=== PATIENT | female | born 1990 | race Caucasian/White ===

== ENCOUNTER 2017-09-20 00:09 | Emergency (ER) | payer BC ==
[2017-09-20 01:05] LABS: #Lymphocytes 2.8 thou/uL (1.20-3.40); #Monocytes 0.5 thou/uL (0.11-0.59); #Neutrophils 5.6 thou/uL (1.40-6.50); %Basophils 0.5 % (0.0-1.0); %Eosinophils 0.1 % (0.0-10.0); %Lymphocytes 31.3 % (21.0-51.0); %Monocytes 5.3 % (0.0-10.0); %Neutrophils 62.9 % (42.0-75.0); Hemoglobin 13.5 g/dL (12.0-16.0); Mean Corpuscular HGB CONC 34.2 g/dL (32.0-36.0); Mean Corpuscular Hemoglobin 31.2 pg (27.0-31.0); Mean Corpuscular Volume 91.2 fl (81.0-99.0); Mean Platelet Volume 6.3 fL (7.4-10.4); Platelet Count 241 thou/uL (130-400); RBC Distribution Width 11.4 % (11.5-14.5); Red Blood Cell (RBC) Count 4.33 mill/uL (4.20-5.40); White Blood Cell (WBC) Count 8.9 thou/uL (4.8-10.8)
[2017-09-20] MEDS ORDERED: Benzonatate 100 MG CAP ONE (01:41)
--- NOTE | 2017-09-20 07:29 | RAD ---
TWO VIEWS OF THE CHEST: COMPARISON: None. HISTORY: Cough. FINDINGS: This exam is limited secondary to the patient's large body habitus. Two views of the chest show norm al sized cardiomediastinal silhouette. There is no evidence of consolidation, mass, or pleural effusi on. The bones are unremarkable. IMPRESSION: No evidence of acute cardiopulmonary disease. POS: [facility]
== END 2017-09-20 02:06 | disposition home or self-care (01) ==
LOC: MADERS 00:09
DX: J20.9 Acute bronchitis, unspecified (principal); F17.210 Nicotine dependence, cigarettes, uncomplicated; Z79.891 Long term (current) use of opiate analgesic; Z79.899 Other long term (current) drug therapy
CPT/HCPCS: 36415; 71046; 85025; 94640; 96372; J1040; J7620

== ENCOUNTER 2018-02-02 21:59 | Emergency (ER) | payer BC ==
--- NOTE | 2018-02-02 23:02 | RAD ---
FOUR VIEWS LEFT KNEE: 02/02/18 HISTORY: Patient fell this morning. Pain. COMPARISON: None. FINDINGS: No joint effusion. No fracture. No malalignment. No significant loss of joint space height. IMPRESSION: No posttraumatic sequela. POS: [id number]
[2018-02-02] MEDS ORDERED: Diazepam 5 MG TAB ONE (23:46)
[2018-02-02] MEDS ORDERED: Acetaminophen/Codeine 30-300mg Tablet ONE (23:46)
== END 2018-02-02 23:59 | disposition home or self-care (01) ==
LOC: MADERS 21:59
DX: S83.92XA Sprain of unspecified site of left knee, initial encounter (principal); E66.9 Obesity, unspecified; F17.210 Nicotine dependence, cigarettes, uncomplicated; W01.0XXA Fall on same level from slipping, tripping and stumbling without subsequent striking against object, initial encounter

== ENCOUNTER 2018-05-24 11:07 | Emergency (ER) | payer BC ==
[2018-05-24] MEDS ORDERED: predniSONE 20 MG TAB ONE (11:50)
[2018-05-24] MEDS ORDERED: Amoxicillin/Potassium Clav 875 MG TAB ONE (11:50)
[2018-05-24] MEDS ORDERED: Ibuprofen 800 MG TAB ONE (11:50)
== END 2018-05-24 11:58 | disposition home or self-care (01) ==
LOC: MADERS 11:07
DX: J02.9 Acute pharyngitis, unspecified (principal); F17.210 Nicotine dependence, cigarettes, uncomplicated; E66.9 Obesity, unspecified
CPT/HCPCS: 87081; 87430; 99283; J7506

== ENCOUNTER 2018-06-07 00:12 | Emergency (ER) | payer BC ==
[2018-06-07] MEDS ORDERED: Fluconazole 100 MG TAB ONE ×2 (00:28→10:08)
== END 2018-06-07 00:35 | disposition home or self-care (01) ==
LOC: MADERS 00:12
DX: B37.3 Candidiasis of vulva and vagina (principal); F17.210 Nicotine dependence, cigarettes, uncomplicated; E66.9 Obesity, unspecified
CPT/HCPCS: 99283

== ENCOUNTER 2018-07-05 09:45 | Emergency (ER) | payer BC | END 2018-07-05 11:00 | disposition home or self-care (01) | LOC: MADERS 09:45 | DX: J02.9 Acute pharyngitis, unspecified (principal); E66.9 Obesity, unspecified; F17.210 Nicotine dependence, cigarettes, uncomplicated | CPT/HCPCS: 87081; 87430; 99283 ==

== ENCOUNTER 2018-09-04 10:38 | Emergency (ER) | payer BC ==
[2018-09-04] MEDS ORDERED: Ibuprofen 800 MG TAB ONE (11:14)
== END 2018-09-04 11:36 | disposition home or self-care (01) ==
LOC: MADERS 10:38
DX: J02.0 Streptococcal pharyngitis (principal); Z71.6 Tobacco abuse counseling; E66.9 Obesity, unspecified; F17.210 Nicotine dependence, cigarettes, uncomplicated
CPT/HCPCS: 87430; 99406

== ENCOUNTER 2018-10-26 09:15 | Emergency (ER) | payer BC | END 2018-10-26 11:08 | disposition home or self-care (01) | LOC: MADERS 09:15 | DX: Z53.21 Procedure and treatment not carried out due to patient leaving prior to being seen by health care provider (principal) ==

== ENCOUNTER 2019-03-15 06:10 | Emergency (ER) | payer BC ==
[2019-03-15 08:23] LABS: Hemoglobin 13.4 g/dL (12.0-16.0); Mean Corpuscular HGB CONC 33.8 g/dL (32.0-36.0); Mean Corpuscular Hemoglobin 29.8 pg (27.0-31.0); Mean Corpuscular Volume 88.3 fL (78.0-98.0); Mean Platelet Volume 6.9 fL (7.4-10.4); Platelet Count 252 thou/uL (130-400); RBC Distribution Width 11.6 % (11.5-14.5); White Blood Cell (WBC) Count 7.7 thou/uL (4.8-10.8)
[2019-03-15 08:39] LABS: Bilirubin Negative (Negative); Blood, Urine Trace (Negative); Clarity Clear (Clear); Glucose, Urine (Dipstick) Negative (Negative); Leukocyte Negative (Negative); Nitrite Negative (Negative); Protein, Urine (Dipstick) Negative (Neg-Trace); Urobilinogen 0.2 mg/dL (Less than 2)
[2019-03-15 08:40] LABS: Anisocytosis SLIGHT = 6-15 cells (100X) (0-5/hpf); Band 1 % (5-11); Eosinophils 2 % (0-10); Lymphocytes 48 % (21-51); MDiff Complete? YES; Monocytes 3 % (0-10); Neutrophil 46 % (42-75); Platelet Morphology Comment Appears Adequate
[2019-03-15 08:43] LABS: Pregnancy Test - Urine (BHCG) Negative (Negative); Pregu Control Background? CLEAR/WHITE (CLR/WHITE); Pregu Control Bar Appear? YES (CONTROL BAR); Specific Gravity 1.015 (1.002-1.036)
[2019-03-15 08:53] LABS: ALT (SGPT) 31 U/L (8-55); AST (SGOT) 27 U/L (5-34); Albumin 3.7 g/dL (3.5-5.0); Alkaline Phosphatase 66 U/L (40-150); Anion Gap 14 mmol/L (10-20); BUN (Urea Nitrogen) 13 mg/dL (7.0-18.7); Bilirubin, Total 0.4 mg/dL (0.2-1.2); Calc. Creatinine Clearance 0 mL/min (70-130); Calcium 8.7 mg/dL (7.8-10.44); Carbon Dioxide 21 mmol/L (22-29); Chloride 106 mmol/L (98-107); Estimated GFR-MDRD Greater than 90; Globulin 3.5 g/dL (2.4-3.5); Glucose 95 mg/dL (70-105); Lipase 10 U/L (8-78); Potassium 5.1 mmol/L (3.5-5.1); Protein, Total 7.2 g/dL (6.0-8.3); Sodium 136 mmol/L (136-145)
[2019-03-15] MEDS ORDERED: Iopamidol 370 76% 100 ML VIAL ONE (09:13)
[2019-03-15 09:36] LABS: Bacteria/HPF Rare-Few HPF (None Seen); RBC/HPF 0-3 HPF (0-3); WBC/HPF 0-3 HPF (0-3)
--- NOTE | 2019-03-15 10:42 | CT ---
ABDOMEN AND PELVIC CT SCAN WITH IV CONTRAST: HISTORY: Right lower quadrant pain with nausea. COMPARISON: None. FINDINGS: The lung bases are clear. Hepatomegaly with fatty change with some fatty sparing adjacent to the gal lbladder. Borderline splenomegaly. Multiple cholelithiasis without CT evidence for acute cholecysti tis. Fat-containing umbilical hernia. Pancreas and adrenal glands are unremarkable.. No renal calc ulus or acute obstruction. No CT evidence for acute appendicitis. Uterus and adnexal regions are unremarkable. No abscess or abnormal fluid collection. IMPRESSION: 1. Hepatomegaly with marked fatty changes and some fatty sparing adjacent to the gallbladder. 2. Cholelithiasis without significant evidence for acute cholecystitis. 3. Borderline splenomegaly. 4. Fat-containing umbilical hernia. 5. No CT evidence for acute appendicitis. 6. No renal calculus or obstruction or other acute process. POS: [facility]
== END 2019-03-15 09:54 | disposition home or self-care (01) ==
LOC: MADERS 06:10
DX: R10.33 Periumbilical pain (principal); R10.31 Right lower quadrant pain; F17.210 Nicotine dependence, cigarettes, uncomplicated
CPT/HCPCS: 74177; 80053; 81003; 81015; 81025; 83690; 85025; Q9967

== ENCOUNTER 2019-03-16 15:16 | Emergency (ER) | payer BC ==
[~2019-03-16 15:16] MED LIST: Iopamidol 370 76% 100 ML VIAL ONE
[2019-03-16 16:13] LABS: Bilirubin Negative (Negative); Blood, Urine Negative (Negative); Glucose, Urine (Dipstick) Negative (Negative); Leukocyte Negative (Negative); Nitrite Negative (Negative); Protein, Urine (Dipstick) Negative (Neg-Trace)
[2019-03-16 16:14] LABS: Clarity Hazy (Clear)
[2019-03-16 16:16] LABS: Pregnancy Test - Urine (BHCG) Negative (Negative); Pregu Control Background? CLEAR/WHITE (CLR/WHITE); Pregu Control Bar Appear? YES (CONTROL BAR)
[2019-03-16 16:30] LABS: #Basophils 0.1 thou/uL (0.0-0.2); #Eosinphils 0.4 thou/uL (0.0-0.7); #Lymphocytes 2.7 thou/uL (1.20-3.40); #Monocytes 0.4 thou/uL (0.11-0.59); #Neutrophils 5.2 thou/uL (1.40-6.50); %Basophils 0.8 % (0.0-1.0); %Eosinophils 4.1 % (0.0-10.0); %Lymphocytes 30.5 % (21.0-51.0); %Monocytes 4.8 % (0.0-10.0); %Neutrophils 59.8 % (42.0-75.0); Hemoglobin 14.4 g/dL (12.0-16.0); Mean Corpuscular HGB CONC 34.2 g/dL (32.0-36.0); Mean Corpuscular Hemoglobin 30.1 pg (27.0-31.0); Mean Platelet Volume 6.4 fL (7.4-10.4); Platelet Count 302 thou/uL (130-400); RBC Distribution Width 11.8 % (11.5-14.5); Red Blood Cell (RBC) Count 4.78 mill/uL (4.20-5.40); White Blood Cell (WBC) Count 8.7 thou/uL (4.8-10.8)
[2019-03-16 16:49] LABS: ALT (SGPT) 31 U/L (8-55); AST (SGOT) 21 U/L (5-34); Albumin 3.8 g/dL (3.5-5.0); Alkaline Phosphatase 74 U/L (40-150); Anion Gap 12 mmol/L (10-20); BUN (Urea Nitrogen) 9 mg/dL (7.0-18.7); Bilirubin, Total 0.3 mg/dL (0.2-1.2); CRP (Inflammatory) 1.28 mg/dL (= or < 0.5); Calc. Creatinine Clearance 0 mL/min (70-130); Calcium 8.8 mg/dL (7.8-10.44); Carbon Dioxide 24 mmol/L (22-29); Chloride 107 mmol/L (98-107); Estimated GFR-MDRD Greater than 90; Globulin 3.1 g/dL (2.4-3.5); Glucose 94 mg/dL (70-105); Lipase 9 U/L (8-78); Potassium 3.9 mmol/L (3.5-5.1); Protein, Total 6.9 g/dL (6.0-8.3); Sodium 139 mmol/L (136-145)
[2019-03-16] MEDS ORDERED: Sodium Chloride 0.9% 1,000 ML ONE (17:25)
[2019-03-16] MEDS ORDERED: Ciprofloxacin Lactate/D5W 400 mg/200 ml Premix ONE (17:25)
[2019-03-16] MEDS ORDERED: Clindamycin/D5W 600 mg/50 ml Premix Bag ONE (17:25)
[2019-03-16] MEDS ORDERED: Morphine 4 MG/ML VIAL ONE (18:19)
[2019-03-16] MEDS ORDERED: Promethazine HCl 25 MG/ML VIAL ONE (18:19)
--- NOTE | 2019-03-16 20:54 | CT ---
CT ABDOMEN AND PELVIS WITH IV CONTRAST: 03/16/19 PROVIDED CLINICAL HISTORY: Right lower quadrant abdominal pain. FINDINGS: Comparison is made with the study dated 03/15/19. The visualized lung bases are free of significant opacity. Diffuse fatty infiltration of the liver is demonstrated. The solid abdominal organs demonstrate no ev idence for an acute abnormality. Gallstones are again seen without CT evidence for acute cholecystiti s. There is no bowel dilatation, inflammatory fat stranding, free fluid, or free air apparent. The appen gary appears normal. Fat containing umbilical hernia is redemonstrated. The osseous structures demonstrate no concerning lytic or blastic lesions. IMPRESSION: No evidence for an acute process. Stable exam with respect to 03/15/19. POS: [facility]
== END 2019-03-16 21:52 | disposition home or self-care (01) ==
LOC: MADERS 15:16
DX: R10.31 Right lower quadrant pain (principal); E66.9 Obesity, unspecified; F17.210 Nicotine dependence, cigarettes, uncomplicated
CPT/HCPCS: 36415; 74177; 80053; 81003; 81025; 82150; 83690; 85025; 86140; 96365; 96366; 96367; 96368; 96375; J0744; J2270; J2550; J3490; J7050; Q9967

== ENCOUNTER 2019-05-18 10:48 | Emergency (ER) | payer BC ==
[2019-05-18] MEDS ORDERED: Acetaminophen 500 MG TAB ONE (11:12)
== END 2019-05-18 11:36 | disposition home or self-care (01) ==
LOC: MADERS 10:48
DX: H60.8X1 Other otitis externa, right ear (principal); F17.210 Nicotine dependence, cigarettes, uncomplicated; Z76.1 Encounter for health supervision and care of foundling
CPT/HCPCS: 99406

== ENCOUNTER 2019-07-10 09:05 | Emergency (ER) | payer BC ==
[2019-07-10] MEDS ORDERED: Benzonatate 100 MG CAP ONE (10:17)
[2019-07-10] MEDS ORDERED: Dexamethasone 4 MG TAB ONE (10:17)
== END 2019-07-10 10:22 | disposition home or self-care (01) ==
LOC: MADERS 09:05
DX: J20.8 Acute bronchitis due to other specified organisms (principal); J06.9 Acute upper respiratory infection, unspecified; E66.9 Obesity, unspecified; F17.210 Nicotine dependence, cigarettes, uncomplicated
CPT/HCPCS: 87081; 87430; 87804; 99283; J8540

== ENCOUNTER 2019-07-12 07:34 | Emergency (ER) | payer BC | END 2019-07-12 08:38 | disposition home or self-care (01) | LOC: MADERS 07:34 | DX: J20.8 Acute bronchitis due to other specified organisms (principal); E66.9 Obesity, unspecified; F17.210 Nicotine dependence, cigarettes, uncomplicated; Z79.52 Long term (current) use of systemic steroids ==

== ENCOUNTER 2019-08-21 20:21 | Emergency (ER) | payer BC | END 2019-08-21 20:45 | disposition home or self-care (01) | LOC: MADERS 20:21 | DX: J11.1 Influenza due to unidentified influenza virus with other respiratory manifestations (principal); E66.9 Obesity, unspecified; F17.210 Nicotine dependence, cigarettes, uncomplicated | CPT/HCPCS: 99283 ==

== ENCOUNTER 2019-11-20 09:26 | Emergency (ER) | payer BC | END 2019-11-20 10:02 | disposition home or self-care (01) | LOC: MADERS 09:26 | DX: K04.7 Periapical abscess without sinus (principal); K03.81 Cracked tooth; K02.9 Dental caries, unspecified; E66.9 Obesity, unspecified; F17.290 Nicotine dependence, other tobacco product, uncomplicated | CPT/HCPCS: 99282 ==

== ENCOUNTER 2019-11-21 19:11 | Emergency (ER) | payer BC | END 2019-11-21 19:55 | disposition home or self-care (01) | LOC: MADERS 19:11 | DX: K04.7 Periapical abscess without sinus (principal); E66.9 Obesity, unspecified; F17.290 Nicotine dependence, other tobacco product, uncomplicated; Z79.899 Other long term (current) drug therapy | CPT/HCPCS: 99282 ==

== ENCOUNTER 2020-07-31 08:12 | Emergency (ER) | payer BC ==
[2020-08-01 03:03] LABS: SARS-CoV-2 MS2 Positive; SARS-CoV-2 N Gene Negative; SARS-CoV-2 S Gene Negative; SARS-CoV-2 by NAA Not Detected (NotDetected); SARS-CoV-2 orf1ab Negative
== END 2020-07-31 09:10 | disposition home or self-care (01) ==
LOC: MADERS 08:12
DX: J06.9 Acute upper respiratory infection, unspecified (principal); Z20.828 Contact with and (suspected) exposure to other viral communicable diseases; F17.290 Nicotine dependence, other tobacco product, uncomplicated
CPT/HCPCS: 87635; 87804; 99283; U0003

== ENCOUNTER 2020-08-09 08:06 | Emergency (ER) | payer BC ==
--- NOTE | 2020-08-09 09:48 | RAD ---
PA AND LATERAL CHEST: Date: 08/09/2020 HISTORY: Fever and cough. FINDINGS: Heart size and mediastinum are within normal limits. Lungs are clear of infiltrates. No bony findings . IMPRESSION: No active intrathoracic disease. POS: [facility]
== END 2020-08-09 08:50 | disposition home or self-care (01) ==
LOC: MADERS 08:06
DX: J18.9 Pneumonia, unspecified organism (principal); F17.290 Nicotine dependence, other tobacco product, uncomplicated; E66.9 Obesity, unspecified
CPT/HCPCS: 71046

== ENCOUNTER 2020-08-25 20:41 | Emergency (ER) | payer BC ==
[2020-08-25] MEDS ORDERED: HYDROcodone/Acetaminophen 5/325 mg Tablet ONE (20:59)
[2020-08-25] MEDS ORDERED: Clindamycin 150 MG CAP ONE (20:59)
== END 2020-08-25 21:07 | disposition home or self-care (01) ==
LOC: MADERS 20:41
DX: K04.7 Periapical abscess without sinus (principal); K02.9 Dental caries, unspecified; E66.9 Obesity, unspecified; F17.290 Nicotine dependence, other tobacco product, uncomplicated
CPT/HCPCS: 99282

== ENCOUNTER 2020-12-23 14:07 | Emergency (ER) | payer BC | END 2020-12-23 15:48 | disposition home or self-care (01) | LOC: MADERS 14:07 | DX: K02.9 Dental caries, unspecified (principal); H92.02 Otalgia, left ear; E66.9 Obesity, unspecified; F17.290 Nicotine dependence, other tobacco product, uncomplicated | CPT/HCPCS: 99282 ==

== ENCOUNTER 2021-03-02 00:02 | Emergency (ER) | payer BC | END 2021-03-02 02:19 | disposition home or self-care (01) | LOC: MADERS 00:02 | DX: O20.0 Threatened abortion (principal); O99.211 Obesity complicating pregnancy, first trimester; O99.331 Smoking (tobacco) complicating pregnancy, first trimester; F17.200 Nicotine dependence, unspecified, uncomplicated; O99.281 Endocrine, nutritional and metabolic diseases complicating pregnancy, first trimester; E28.2 Polycystic ovarian syndrome; Z3A.01 Less than 8 weeks gestation of pregnancy | CPT/HCPCS: 84702; 86900; 86901; 99284 ==

== ENCOUNTER 2021-03-11 20:26 | Emergency (ER) | payer BC ==
[2021-03-11] MEDS ORDERED: predniSONE 20 MG TAB ONE (21:25)
== END 2021-03-11 22:06 | disposition home or self-care (01) ==
LOC: MADERS 20:26
DX: J02.9 Acute pharyngitis, unspecified (principal); F17.290 Nicotine dependence, other tobacco product, uncomplicated; E66.9 Obesity, unspecified; E28.2 Polycystic ovarian syndrome
CPT/HCPCS: 87081; 87430; 99283; J7512

== ENCOUNTER 2021-03-27 18:49 | Emergency (ER) | payer BC ==
[2021-03-27] MEDS ORDERED: Ketorolac Tromethamine 30 MG/ML VIAL ONE (19:37)
== END 2021-03-27 19:40 | disposition home or self-care (01) ==
LOC: MADERS 18:49
DX: K02.9 Dental caries, unspecified (principal); K08.89 Other specified disorders of teeth and supporting structures; K03.81 Cracked tooth; F17.290 Nicotine dependence, other tobacco product, uncomplicated; E28.2 Polycystic ovarian syndrome; E66.9 Obesity, unspecified
CPT/HCPCS: 96372; 99282; J1885

== ENCOUNTER 2021-04-30 07:53 | Emergency (ER) | payer BC | END 2021-04-30 10:10 | disposition home or self-care (01) | LOC: MADERS 07:53 | DX: J02.9 Acute pharyngitis, unspecified (principal); E28.2 Polycystic ovarian syndrome; E66.9 Obesity, unspecified; H92.01 Otalgia, right ear; F17.290 Nicotine dependence, other tobacco product, uncomplicated | CPT/HCPCS: 87081; 87430; 99283 ==

== ENCOUNTER 2021-05-18 19:07 | Emergency (ER) | payer BC | END 2021-05-18 20:20 | disposition home or self-care (01) | LOC: MADERS 19:07 | DX: S63.502A Unspecified sprain of left wrist, initial encounter (principal); M25.512 Pain in left shoulder; M79.632 Pain in left forearm; E66.9 Obesity, unspecified; Z87.891 Personal history of nicotine dependence; W18.30XA Fall on same level, unspecified, initial encounter ==

== ENCOUNTER 2021-06-20 09:57 | Emergency (ER) | payer BC ==
[2021-06-20 11:13] LABS: #Basophils 0.1 thou/uL (0.0-0.2); #Eosinphils 0.3 thou/uL (0.0-0.7); #Lymphocytes 2.4 thou/uL (1.20-3.40); #Monocytes 0.4 thou/uL (0.11-0.59); #Neutrophils 6.4 thou/uL (1.40-6.50); %Basophils 0.8 % (0.0-1.0); %Eosinophils 3.1 % (0.0-10.0); %Lymphocytes 24.8 % (21.0-51.0); %Monocytes 3.9 % (0.0-10.0); %Neutrophils 67.4 % (42.0-75.0); Hemoglobin 14.2 g/dL (12.0-16.0); Mean Corpuscular HGB CONC 34.2 g/dL (32.0-36.0); Mean Corpuscular Hemoglobin 30.9 pg (27.0-31.0); Mean Corpuscular Volume 90.3 fL (78.0-98.0); Platelet Count 270 thou/uL (130-400); RBC Distribution Width 11.3 % (11.5-14.5); Red Blood Cell (RBC) Count 4.59 mill/uL (4.20-5.40); White Blood Cell (WBC) Count 9.6 thou/uL (4.8-10.8)
[2021-06-20 11:29] LABS: ALT (SGPT) 41 U/L (8-55); AST (SGOT) 21 U/L (5-34); Albumin 3.7 g/dL (3.5-5.0); Alkaline Phosphatase 67 U/L (40-110); Anion Gap 13 mmol/L (10-20); BUN (Urea Nitrogen) 10 mg/dL (7.0-18.7); Bilirubin, Total 0.4 mg/dL (0.2-1.2); Calc. Creatinine Clearance 0 mL/min (70-130); Calcium 9.2 mg/dL (7.8-10.44); Carbon Dioxide 22 mmol/L (22-29); Chloride 107 mmol/L (98-107); Globulin 3.1 g/dL (2.4-3.5); Glucose 126 mg/dL (70-105); Lipase 11 U/L (8-78); Protein, Total 6.8 g/dL (6.0-8.3); Sodium 138 mmol/L (136-145)
[2021-06-20 14:14] LABS: Troponin I Less than 0.010 ng/mL (< 0.028)
== END 2021-06-20 14:45 | disposition home or self-care (01) ==
LOC: MADERS 09:57
DX: R07.89 Other chest pain (principal); R42 Dizziness and giddiness; R11.0 Nausea; E66.9 Obesity, unspecified; F17.290 Nicotine dependence, other tobacco product, uncomplicated
CPT/HCPCS: 71045; 80053; 83690; 84484; 85025; 93005

== ENCOUNTER 2021-07-10 17:51 | Emergency (ER) | payer BC ==
[2021-07-10] MEDS ORDERED: Lidocaine 1% 20 ML MDV ONE (19:06)
== END 2021-07-10 19:08 | disposition home or self-care (01) ==
LOC: MADERS 17:51
DX: S61.214A Laceration without foreign body of right ring finger without damage to nail, initial encounter (principal); E66.9 Obesity, unspecified; F17.290 Nicotine dependence, other tobacco product, uncomplicated; W26.8XXA Contact with other sharp object(s), not elsewhere classified, initial encounter
CPT/HCPCS: 12001

== ENCOUNTER 2021-07-18 08:35 | Emergency (ER) | payer OTHER, BC ==
[2021-07-18] MEDS ORDERED: Cyclobenzaprine 10 MG TAB ONE (09:03)
[2021-07-18] MEDS ORDERED: Ibuprofen 800 MG TAB ONE (09:03)
== END 2021-07-18 09:15 | disposition home or self-care (01) ==
LOC: MADERS 08:35
DX: S16.1XXA Strain of muscle, fascia and tendon at neck level, initial encounter (principal); S29.012A Strain of muscle and tendon of back wall of thorax, initial encounter; S60.222A Contusion of left hand, initial encounter; E66.9 Obesity, unspecified; F17.210 Nicotine dependence, cigarettes, uncomplicated; Z79.899 Other long term (current) drug therapy; V43.52XA Car driver injured in collision with other type car in traffic accident, initial encounter
CPT/HCPCS: 99283

== ENCOUNTER 2021-07-21 17:16 | Emergency (ER) | payer OTHER, BC ==
[2021-07-21] MEDS ORDERED: Clindamycin 150 MG CAP ONE (17:42)
== END 2021-07-21 18:03 | disposition home or self-care (01) ==
LOC: MADERS 17:16
DX: K04.7 Periapical abscess without sinus (principal); L03.211 Cellulitis of face; S70.02XD Contusion of left hip, subsequent encounter; R03.0 Elevated blood-pressure reading, without diagnosis of hypertension; E66.9 Obesity, unspecified; F17.210 Nicotine dependence, cigarettes, uncomplicated; V89.2XXD Person injured in unspecified motor-vehicle accident, traffic, subsequent encounter
CPT/HCPCS: 99283

== ENCOUNTER 2021-07-31 13:18 | Emergency (ER) | payer OTHER, BC ==
[2021-07-31 14:50] LABS: #Basophils 0.1 thou/uL (0.0-0.2); #Eosinphils 0.4 thou/uL (0.0-0.7); #Lymphocytes 2.5 thou/uL (1.20-3.40); #Monocytes 0.4 thou/uL (0.11-0.59); #Neutrophils 5.2 thou/uL (1.40-6.50); %Basophils 0.9 % (0.0-1.0); %Eosinophils 4.7 % (0.0-10.0); %Monocytes 4.3 % (0.0-10.0); Hemoglobin 14.3 g/dL (12.0-16.0); Mean Corpuscular HGB CONC 33.6 g/dL (32.0-36.0); Mean Corpuscular Hemoglobin 30.6 pg (27.0-31.0); Mean Corpuscular Volume 91.1 fL (78.0-98.0); Mean Platelet Volume 6.6 fL (7.4-10.4); Platelet Count 305 thou/uL (130-400); RBC Distribution Width 11.4 % (11.5-14.5); Red Blood Cell (RBC) Count 4.66 mill/uL (4.20-5.40); White Blood Cell (WBC) Count 8.6 thou/uL (4.8-10.8)
[2021-07-31] MEDS ORDERED: Sodium Chloride 0.9% 1,000 ML ONE (14:54)
[2021-07-31 15:04] LABS: ALT (SGPT) 56 U/L (8-55); AST (SGOT) 26 U/L (5-34); Albumin 3.7 g/dL (3.5-5.0); Alcohol Less than 10 mg/dL (Less than 10); Alkaline Phosphatase 76 U/L (40-110); Anion Gap 10 mmol/L (10-20); BUN (Urea Nitrogen) 10 mg/dL (7.0-18.7); Bilirubin, Total 0.3 mg/dL (0.2-1.2); Calc. Creatinine Clearance 0 mL/min (70-130); Calcium 8.7 mg/dL (7.8-10.44); Carbon Dioxide 24 mmol/L (22-29); Chloride 107 mmol/L (98-107); Globulin 3.2 g/dL (2.4-3.5); Glucose 130 mg/dL (70-105); Potassium 3.7 mmol/L (3.5-5.1); Protein, Total 6.9 g/dL (6.0-8.3); Sodium 137 mmol/L (136-145)
[2021-07-31 15:27] LABS: Bilirubin Negative (Negative); Blood, Urine Negative (Negative); Clarity Clear (Clear); Glucose, Urine (Dipstick) Negative (Negative); Ketone, Urine Negative (Negative); Leukocyte Negative (Negative); Nitrite Negative (Negative); Protein, Urine (Dipstick) Negative (Neg-Trace); Urobilinogen 0.2 mg/dL (Less than 2)
== END 2021-07-31 16:10 | disposition home or self-care (01) ==
LOC: MADERS 13:18
DX: S00.93XA Contusion of unspecified part of head, initial encounter (principal); F41.9 Anxiety disorder, unspecified; R55 Syncope and collapse; F17.210 Nicotine dependence, cigarettes, uncomplicated; E28.2 Polycystic ovarian syndrome; E66.9 Obesity, unspecified; W01.198A Fall on same level from slipping, tripping and stumbling with subsequent striking against other object, initial encounter; Z68.45 Body mass index [BMI] 70 or greater, adult
CPT/HCPCS: 70450; 71045; 80053; 80307; 81003; 84484; 85025; 93005; J7050

== ENCOUNTER 2021-08-07 12:57 | Emergency (ER) | payer BC ==
[2021-08-07] MEDS ORDERED: Iopamidol 370 76% 100 ML VIAL IV ONE (12:58)
[2021-08-07 13:49] LABS: #Eosinphils 0.4 thou/uL (0.0-0.7); #Lymphocytes 2.1 thou/uL (1.20-3.40); #Monocytes 0.4 thou/uL (0.11-0.59); #Neutrophils 4.2 thou/uL (1.40-6.50); %Basophils 0.7 % (0.0-1.0); %Eosinophils 5.8 % (0.0-10.0); %Lymphocytes 29.7 % (21.0-51.0); %Monocytes 5.1 % (0.0-10.0); %Neutrophils 58.9 % (42.0-75.0); Hemoglobin 13.9 g/dL (12.0-16.0); Mean Corpuscular HGB CONC 33.4 g/dL (32.0-36.0); Mean Corpuscular Hemoglobin 30.5 pg (27.0-31.0); Mean Corpuscular Volume 91.4 fL (78.0-98.0); Mean Platelet Volume 6.5 fL (7.4-10.4); Platelet Count 277 thou/uL (130-400); RBC Distribution Width 11.6 % (11.5-14.5); Red Blood Cell (RBC) Count 4.55 mill/uL (4.20-5.40); White Blood Cell (WBC) Count 7.1 thou/uL (4.8-10.8)
[2021-08-07 13:52] LABS: INR-International Normal Ratio 0.9; Prothrombin Time 12.6 sec (12.0-14.7)
[2021-08-07 13:53] LABS: PTT 40.4 sec (22.9-36.1)
[2021-08-07 14:04] LABS: ALT (SGPT) 42 U/L (8-55); AST (SGOT) 22 U/L (5-34); Albumin 3.6 g/dL (3.5-5.0); Alkaline Phosphatase 70 U/L (40-110); Anion Gap 14 mmol/L (10-20); BUN (Urea Nitrogen) 9 mg/dL (7.0-18.7); Bilirubin, Total 0.3 mg/dL (0.2-1.2); CK (CPK) 44 U/L (29-168); Calc. Creatinine Clearance 0 mL/min (70-130); Calcium 8.5 mg/dL (7.8-10.44); Carbon Dioxide 24 mmol/L (22-29); Chloride 104 mmol/L (98-107); Globulin 3.2 g/dL (2.4-3.5); Glucose 129 mg/dL (70-105); Lipase 23 U/L (8-78); Potassium 3.8 mmol/L (3.5-5.1); Protein, Total 6.8 g/dL (6.0-8.3); Sodium 138 mmol/L (136-145)
[2021-08-07] MEDS ORDERED: Sodium Chloride 0.9% 1,000 ML ONE (14:20)
[2021-08-07] MEDS ORDERED: Pantoprazole 40 MG VIAL ONE (14:20)
[2021-08-07] MEDS ORDERED: Ondansetron PF 4 MG/2 ML Vial ONE (14:20)
[2021-08-07 15:37] LABS: BHCG - Serum Negative (NEGATIVE); Pregs Control Background? CLEAR/WHITE (CLR/WHITE); Pregs Control Bar Appear? YES (CONTROL BAR)
[2021-08-07 16:33] LABS: Bilirubin Negative (Negative); Blood, Urine Negative (Negative); Clarity Clear (Clear); Glucose, Urine (Dipstick) Negative (Negative); Ketone, Urine Negative (Negative); Leukocyte Negative (Negative); Nitrite Negative (Negative); Protein, Urine (Dipstick) Negative (Neg-Trace); Urobilinogen 0.2 mg/dL (Less than 2)
[2021-08-07] MEDS ORDERED: Ketorolac Tromethamine 30 MG/ML VIAL ONE (16:50)
[2021-08-07] MEDS ORDERED: metroNIDAZOLE 250 MG TAB ONE (16:50)
== END 2021-08-07 17:10 | disposition home or self-care (01) ==
LOC: MADERS 12:57
DX: K52.89 Other specified noninfective gastroenteritis and colitis (principal); K63.89 Other specified diseases of intestine; E66.9 Obesity, unspecified; F17.210 Nicotine dependence, cigarettes, uncomplicated
CPT/HCPCS: 36415; 74177; 80053; 81003; 82150; 82550; 83690; 84703; 85025; 85610; 85730; 86140; 96374; 96375; C9113; J1885; J2405; J7050; Q9967

== ENCOUNTER 2021-12-15 01:40 | Emergency (ER) | payer BC, OTHER ==
[2021-12-15] MEDS ORDERED: Ondansetron ODT 4 MG TAB ONE (02:14)
[2021-12-15] MEDS ORDERED: Acetaminophen 500 MG TAB ONE (02:14)
[2021-12-15] MEDS ORDERED: Cyclobenzaprine 10 MG TAB ONE (02:14)
[2021-12-15] MEDS ORDERED: Ketorolac Tromethamine 30 MG/ML VIAL ONE (02:14)
[2021-12-15 02:21] LABS: Pregnancy Test - Urine (BHCG) Negative (Negative); Pregu Control Background? CLEAR/WHITE (CLR/WHITE); Pregu Control Bar Appear? YES (CONTROL BAR)
== END 2021-12-15 03:02 | disposition home or self-care (01) ==
LOC: MADERS 01:40
DX: N94.6 Dysmenorrhea, unspecified (principal); R10.2 Pelvic and perineal pain; E66.9 Obesity, unspecified; F17.210 Nicotine dependence, cigarettes, uncomplicated
CPT/HCPCS: 81025; 96372; 99284; J1885; Q0162

== ENCOUNTER 2022-05-03 19:21 | Emergency (ER) | payer BC ==
[2022-05-03] MEDS ORDERED: traMADol HCl 50 MG TAB ONE (19:55)
[2022-05-03] MEDS ORDERED: Ketorolac Tromethamine 60 MG/2 ML VIAL ONE (19:55)
[2022-05-03] MEDS ORDERED: Clindamycin 150 MG CAP ONE (19:55)
== END 2022-05-03 20:18 | disposition home or self-care (01) ==
LOC: MADERS 19:21
DX: K04.7 Periapical abscess without sinus (principal); K03.81 Cracked tooth; E28.2 Polycystic ovarian syndrome; F17.210 Nicotine dependence, cigarettes, uncomplicated; E66.9 Obesity, unspecified; Z68.45 Body mass index [BMI] 70 or greater, adult
CPT/HCPCS: 96372; 99282; J1885

== ENCOUNTER 2022-06-30 08:17 | Emergency (ER) | payer BC | END 2022-06-30 09:27 | disposition home or self-care (01) | LOC: MADERS 08:17 | DX: S63.617A Unspecified sprain of left little finger, initial encounter (principal); E66.9 Obesity, unspecified; F17.210 Nicotine dependence, cigarettes, uncomplicated; W26.8XXA Contact with other sharp object(s), not elsewhere classified, initial encounter ==

== ENCOUNTER 2022-07-22 16:45 | Emergency (ER) | payer BC ==
[2022-07-22 17:37] LABS: Bilirubin Negative (Negative); Blood, Urine Negative (Negative); Clarity Clear (Clear); Glucose, Urine (Dipstick) Negative (Negative); Ketone, Urine Negative (Negative); Leukocyte Negative (Negative); Nitrite Negative (Negative); Protein, Urine (Dipstick) Negative (Neg-Trace); Specific Gravity, Urine 1.015 (1.005-1.030); Urobilinogen 0.2 mg/dL (Less than 2)
[2022-07-22 17:39] LABS: Pregnancy Test - Urine (BHCG) Negative (Negative)
[2022-07-22 17:40] LABS: Pregu Control Background? CLEAR/WHITE (CLR/WHITE); Pregu Control Bar Appear? YES (CONTROL BAR); Specific Gravity 1.015 (1.002-1.036)
== END 2022-07-22 20:05 | disposition home or self-care (01) ==
LOC: MADERS 16:45
DX: K59.00 Constipation, unspecified (principal); E66.9 Obesity, unspecified; F17.210 Nicotine dependence, cigarettes, uncomplicated
CPT/HCPCS: 74176; 81003; 81025

== ENCOUNTER 2022-09-15 18:40 | Emergency (ER) | payer BC ==
[2022-09-15] MEDS ORDERED: Boostrix 0.5 ML (Tdap) VIAL (>/=7 yrs of age) ONE (19:20)
== END 2022-09-15 19:36 | disposition home or self-care (01) ==
LOC: MADERS 18:40
DX: S30.811A Abrasion of abdominal wall, initial encounter (principal); S80.812A Abrasion, left lower leg, initial encounter; S70.312A Abrasion, left thigh, initial encounter; L03.90 Cellulitis, unspecified; E66.9 Obesity, unspecified; F17.210 Nicotine dependence, cigarettes, uncomplicated; W55.49XA Other contact with pig, initial encounter; Z23 Encounter for immunization
CPT/HCPCS: 90471; 90715

== ENCOUNTER 2022-12-28 09:18 | Emergency (ER) | payer BC | END 2022-12-28 09:55 | disposition home or self-care (01) | LOC: MADERS 09:18 | DX: L03.116 Cellulitis of left lower limb (principal); E66.9 Obesity, unspecified; F17.210 Nicotine dependence, cigarettes, uncomplicated | CPT/HCPCS: 99283 ==

== ENCOUNTER 2023-01-13 16:40 | Emergency (ER) | payer BC ==
[2023-01-13] MEDS ORDERED: Tetracaine 0.5% PF 4 ML BOT ONE (16:54)
[2023-01-13] MEDS ORDERED: Fluorescein Opthalmic Strip ONE (16:54)
== END 2023-01-13 17:16 | disposition home or self-care (01) ==
LOC: MADERS 16:40
DX: S05.02XA Injury of conjunctiva and corneal abrasion without foreign body, left eye, initial encounter (principal); F17.210 Nicotine dependence, cigarettes, uncomplicated; W54.1XXA Struck by dog, initial encounter
CPT/HCPCS: 99283

== ENCOUNTER 2023-03-26 22:34 | Emergency (ER) | payer BC | END 2023-03-26 23:56 | disposition home or self-care (01) | LOC: MADERS 22:34 | DX: S83.004A Unspecified dislocation of right patella, initial encounter (principal); E66.9 Obesity, unspecified; F17.210 Nicotine dependence, cigarettes, uncomplicated; Y93.68 Activity, volleyball (beach) (court) ==

== ENCOUNTER 2023-04-24 18:26 | Emergency (ER) | payer BC | END 2023-04-24 20:18 | disposition home or self-care (01) | LOC: MADERS 18:26 | DX: J02.9 Acute pharyngitis, unspecified (principal); E66.9 Obesity, unspecified; Z87.891 Personal history of nicotine dependence | CPT/HCPCS: 99283 ==

== ENCOUNTER 2023-05-10 00:27 | Emergency (ER) | payer BC ==
[2023-05-10] MEDS ORDERED: Ketorolac Tromethamine 30 MG/ML VIAL ONE (01:19)
[2023-05-10] MEDS ORDERED: Ondansetron PF 4 MG/2 ML Vial ONE (01:19)
[2023-05-10] MEDS ORDERED: Sodium Chloride 0.9% 1,000 ML ONE (01:19)
[2023-05-10 01:32] LABS: Hematocrit 43.8 % (36.0-47.0); Hemoglobin 15.2 g/dL (12.0-16.0); Mean Corpuscular HGB CONC 34.7 g/dL (32.0-36.0); Mean Corpuscular Hemoglobin 31.5 pg (27.0-31.0); Mean Corpuscular Volume 90.7 fl (78.0-98.0); Platelet Count 280 10x3/uL (130-400); RBC Distribution Width 11.8 % (11.5-14.5); Red Blood Cell (RBC) Count 4.83 mill/uL (4.20-5.40); White Blood Cell (WBC) Count 9.9 10x3/uL (4.8-10.8)
[2023-05-10 01:34] LABS: BHCG - Serum Negative (NEGATIVE); Pregs Control Background? CLEAR/WHITE (CLR/WHITE); Pregs Control Bar Appear? YES (CONTROL BAR)
[2023-05-10 01:44] LABS: ALT (SGPT) 31 U/L (8-55); AST (SGOT) 18 U/L (5-34); Albumin 4.1 g/dL (3.5-5.0); Alkaline Phosphatase 82 U/L (40-110); Anion Gap 15 mmol/L (10-20); BUN (Urea Nitrogen) 12 mg/dL (7.0-18.7); Bilirubin, Total 0.3 mg/dL (0.2-1.2); Calc. Creatinine Clearance 0 mL/min (70-130); Calcium 9.4 mg/dL (7.8-10.44); Carbon Dioxide 22 mmol/L (22-29); Chloride 107 mmol/L (98-107); Estimated GFR 105; Globulin 3.3 g/dL (2.4-3.5); Glucose 109 mg/dL (70-105); Magnesium 1.9 mg/dL (1.6-2.6); Potassium 3.8 mmol/L (3.5-5.1); Protein, Total 7.4 g/dL (6.0-8.3); Sodium 140 mmol/L (136-145)
[2023-05-10 02:19] LABS: Eosinophils 6 % (0-10); Lymphocytes 31 % (21-51); MDiff Complete? YES; Monocytes 1 % (0-10); Neutrophil 60 % (42-75); Platelet Adequacy Comment Appears Adequate
[2023-05-10 02:56] LABS: Bilirubin Negative (Negative); Blood, Urine Large (Negative); Clarity Clear (Clear); Glucose, Urine (Dipstick) Negative (Negative); Ketone, Urine Negative (Negative); Leukocyte Negative (Negative); Nitrite Negative (Negative); Protein, Urine (Dipstick) 30 mg/dL (Neg-Trace); Urobilinogen 0.2 mg/dL (Less than 2)
[2023-05-10 03:00] LABS: Specific Gravity, Urine 1.027 (1.002-1.036)
[2023-05-10 03:06] LABS: Bacteria/HPF 1+ HPF (None Seen); CAUTI Indications for Culture Pelvic or flank pain; WBC/HPF 0-3 HPF (0-3)
[2023-05-10 03:07] LABS: Mucous/LPF 1+ LPF (<2+); Urine Culture Reflex No No
[2023-05-10] MEDS ORDERED: Iopamidol 370 76% 100 ML VIAL ONE (13:03)
== END 2023-05-10 02:54 | disposition home or self-care (01) ==
LOC: MADERS 00:27
DX: R10.31 Right lower quadrant pain (principal); E66.9 Obesity, unspecified; Z87.891 Personal history of nicotine dependence
CPT/HCPCS: 74177; 80053; 81001; 83735; 84703; 85025; 96374; 96375; J1885; J2405; J7050; Q9967

== ENCOUNTER 2023-06-24 17:54 | Emergency (ER) | payer BC ==
[2023-06-24] MEDS ORDERED: Lorazepam 2 MG/ML VIAL ONE (18:16)
[2023-06-24] MEDS ORDERED: Lactated Ringer's 1,000 ML ONE (18:16)
[2023-06-24] MEDS ORDERED: Ketorolac Tromethamine 30 MG/ML VIAL ONE (18:16)
[2023-06-24 18:50] LABS: BHCG - Serum Negative (NEGATIVE); Pregs Control Background? CLEAR/WHITE (CLR/WHITE); Pregs Control Bar Appear? YES (CONTROL BAR)
[2023-06-24 18:53] LABS: ALT (SGPT) 31 U/L (8-55); AST (SGOT) 16 U/L (5-34); Albumin 4.1 g/dL (3.5-5.0); Alkaline Phosphatase 74 U/L (40-110); Anion Gap 16 mmol/L (10-20); BUN (Urea Nitrogen) 10 mg/dL (7.0-18.7); Bilirubin, Total 0.4 mg/dL (0.2-1.2); Calc. Creatinine Clearance 0 mL/min (70-130); Calcium 9.6 mg/dL (7.8-10.44); Carbon Dioxide 23 mmol/L (22-29); Chloride 105 mmol/L (98-107); Estimated GFR 109; Globulin 3.4 g/dL (2.4-3.5); Glucose 89 mg/dL (70-105); Potassium 4.1 mmol/L (3.5-5.1); Protein, Total 7.5 g/dL (6.0-8.3); Sodium 140 mmol/L (136-145)
[2023-06-24 19:11] LABS: Band 10 % (5-11); Hematocrit 42.3 % (36.0-47.0); Hemoglobin 15.2 g/dL (12.0-16.0); Lymphocytes 24 % (21-51); MDiff Complete? YES; Mean Corpuscular Hemoglobin 33.7 pg (27.0-31.0); Mean Corpuscular Volume 93.6 fl (78.0-98.0); Mean Platelet Volume 7.1 fL (7.4-10.4); Monocytes 5 % (0-10); Neutrophil 61 % (42-75); Platelet Adequacy Comment Appears Adequate; Platelet Count 270 10x3/uL (130-400); RBC Distribution Width 12.5 % (11.5-14.5); Red Blood Cell (RBC) Count 4.51 mill/uL (4.20-5.40); White Blood Cell (WBC) Count 10.7 10x3/uL (4.8-10.8)
[2023-06-24 19:16] LABS: PTT 30.2 sec (22.9-36.1); Prothrombin Time 13.6 sec (12.0-14.7)
== END 2023-06-24 19:36 | disposition home or self-care (01) ==
LOC: MADERS 17:54
DX: N92.0 Excessive and frequent menstruation with regular cycle (principal); N94.6 Dysmenorrhea, unspecified; Z87.891 Personal history of nicotine dependence
CPT/HCPCS: 36415; 80053; 84703; 85025; 85610; 85730; 86850; 86900; 86901; 93005; 94760; 96361; 96374; 96375; J1885; J2060; J7120

== ENCOUNTER 2023-08-17 19:31 | Emergency (ER) | payer BC ==
[2023-08-17] MEDS ORDERED: Benzonatate 100 MG CAP ONE (19:56)
[2023-08-17] MEDS ORDERED: Azithromycin 250 MG TAB ONE (20:12)
== END 2023-08-17 20:16 | disposition home or self-care (01) ==
LOC: MADERS 19:31
DX: J20.9 Acute bronchitis, unspecified (principal); E66.9 Obesity, unspecified; F17.210 Nicotine dependence, cigarettes, uncomplicated
CPT/HCPCS: 71046

== ENCOUNTER 2023-08-22 13:57 | Emergency (ER) | payer BC ==
[2023-08-22] MEDS ORDERED: Ketorolac Tromethamine 60 MG/2 ML VIAL ONE (15:00)
[2023-08-22] MEDS ORDERED: Ondansetron ODT 4 MG TAB ONE (15:00)
== END 2023-08-22 15:20 | disposition home or self-care (01) ==
LOC: MADERS 13:57
DX: S39.011A Strain of muscle, fascia and tendon of abdomen, initial encounter (principal); E66.9 Obesity, unspecified; F17.210 Nicotine dependence, cigarettes, uncomplicated; X50.1XXA Overexertion from prolonged static or awkward postures, initial encounter
CPT/HCPCS: 96372; 99283; J1885; Q0162

== ENCOUNTER 2023-09-15 13:36 | Emergency (ER) | payer BC ==
[2023-09-15] MEDS ORDERED: Acetaminophen 500 MG TAB ONE (14:53)
== END 2023-09-15 15:19 | disposition home or self-care (01) ==
LOC: MADERS 13:36
DX: S20.211A Contusion of right front wall of thorax, initial encounter (principal); M25.561 Pain in right knee; Z87.891 Personal history of nicotine dependence; W00.0XXA Fall on same level due to ice and snow, initial encounter
CPT/HCPCS: 72070

== ENCOUNTER 2024-01-07 14:40 | Emergency (ER) | payer BC ==
[2024-01-07] MEDS ORDERED: Azithromycin 250 MG TAB ONE ×2 (15:09→15:10)
[2024-01-07 15:13] LABS: Bilirubin Negative (Negative); Blood, Urine Negative (Negative); Clarity Clear (Clear); Glucose, Urine (Dipstick) Negative (Negative); Ketone, Urine Negative (Negative); Leukocyte Negative (Negative); Nitrite Negative (Negative); Protein, Urine (Dipstick) Negative (Neg-Trace); Specific Gravity, Urine 1.025 (1.005-1.030); Urobilinogen 0.2 mg/dL (Less than 2)
[2024-01-07 15:17] LABS: Pregnancy Test - Urine (BHCG) Negative (Negative); Pregu Control Background? CLEAR/WHITE (CLR/WHITE); Pregu Control Bar Appear? YES (CONTROL BAR); Specific Gravity 1.025 (1.002-1.036)
[2024-01-07 15:22] LABS: CAUTI Indications for Culture Dysuria,urgency,freq; RBC/HPF 0-3 HPF (0-3); WBC/HPF 0-3 HPF (0-3)
[2024-01-07 15:23] LABS: Bacteria/HPF 1+ HPF (None Seen); Urine Culture Reflex No No
[2024-01-08 06:46] LABS: Campy jejuni + coli by PCR Negative (Negative); STEC Shiga Toxin 1+2 Negative (Negative); Salmonella spp. by PCR Negative (Negative); Shigella spp + EIEC by PCR Negative (Negative)
== END 2024-01-07 15:38 | disposition home or self-care (01) ==
LOC: MADERS 14:40
DX: R11.2 Nausea with vomiting, unspecified (principal); R19.7 Diarrhea, unspecified; R10.30 Lower abdominal pain, unspecified; R50.9 Fever, unspecified; F90.9 Attention-deficit hyperactivity disorder, unspecified type; E66.9 Obesity, unspecified; F17.210 Nicotine dependence, cigarettes, uncomplicated
CPT/HCPCS: 81001; 81025; 87324; 87449; 87505; 99284

== ENCOUNTER 2024-02-21 14:16 | Emergency (ER) | payer BC ==
[2024-02-21] MEDS ORDERED: Sodium Chloride 0.9% 1,000 ML ONE ×2 (14:42→16:09)
[2024-02-21 14:52] LABS: #Basophils 0.1 thou/uL (0.0-0.2); #Eosinphils 0.2 thou/uL (0.0-0.7); #Lymphocytes 2.5 thou/uL (1.20-3.40); #Monocytes 0.3 thou/uL (0.11-0.59); #Neutrophils 7.5 thou/uL (1.40-6.50); %Basophils 0.6 % (0.0-1.0); %Eosinophils 2.3 % (0.0-10.0); %Lymphocytes 23.4 % (21.0-51.0); %Monocytes 3.1 % (0.0-10.0); %Neutrophils 70.7 % (42.0-75.0); Hematocrit 43.2 % (36.0-47.0); Hemoglobin 13.9 g/dL (12.0-16.0); Mean Corpuscular HGB CONC 32.1 g/dL (32.0-36.0); Mean Corpuscular Hemoglobin 28.7 pg (27.0-31.0); Mean Corpuscular Volume 89.4 fl (78.0-98.0); Mean Platelet Volume 6.5 fL (7.4-10.4); Platelet Count 271 10x3/uL (130-400); RBC Distribution Width 12.9 % (11.5-14.5); Red Blood Cell (RBC) Count 4.84 mill/uL (4.20-5.40); White Blood Cell (WBC) Count 10.6 10x3/uL (4.8-10.8)
[2024-02-21 14:58] LABS: Bilirubin Negative (Negative); Blood, Urine Negative (Negative); Glucose, Urine (Dipstick) Negative (Negative); Ketone, Urine Negative (Negative); Leukocyte Negative (Negative); Nitrite Negative (Negative); Protein, Urine (Dipstick) Negative (Neg-Trace); Urobilinogen 0.2 mg/dL (Less than 2); pH, Urine 8.5 (5.0-9.0)
[2024-02-21 15:01] LABS: Clarity Hazy (Clear)
[2024-02-21 15:01] LABS: BHCG - Serum Negative (NEGATIVE); Pregs Control Background? CLEAR/WHITE (CLR/WHITE); Pregs Control Bar Appear? YES (CONTROL BAR)
[2024-02-21 15:04] LABS: Bacteria/HPF 1+ HPF (None Seen); CAUTI Indications for Culture < 2yrs of age; RBC/HPF 0-3 HPF (0-3); WBC/HPF 0-3 HPF (0-3)
[2024-02-21 15:06] LABS: Urine Culture Reflex Yes Yes
[2024-02-21 15:08] LABS: ALT (SGPT) 46 U/L (8-55); AST (SGOT) 22 U/L (5-34); Albumin 3.9 g/dL (3.5-5.0); Alkaline Phosphatase 68 U/L (40-110); Anion Gap 13 mmol/L (10-20); BUN (Urea Nitrogen) 7 mg/dL (7.0-18.7); Bilirubin, Total 0.4 mg/dL (0.2-1.2); Calc. Creatinine Clearance 0 mL/min (70-130); Calcium 9.1 mg/dL (7.8-10.44); Carbon Dioxide 21 mmol/L (22-29); Chloride 107 mmol/L (98-107); Estimated GFR 117; Globulin 3.1 g/dL (2.4-3.5); Glucose 116 mg/dL (70-105); Lipase 8 U/L (8-78); Potassium 3.9 mmol/L (3.5-5.1); Sodium 137 mmol/L (136-145)
[2024-02-21] MEDS ORDERED: Ketorolac Tromethamine 30 MG (1 mL) VIAL ONE (16:09)
[2024-02-21] MEDS ORDERED: Metoclopramide HCl 10 MG TAB ONE (16:40)
[2024-02-21] MEDS ORDERED: diphenhydrAMINE 50 MG/ML VIAL ONE (16:40)
[2024-02-21] MEDS ORDERED: Metoclopramide HCl 10 MG (2 mL) VIAL ONE (16:41)
[2024-02-21 17:25] LABS: Influenza A by NAA Not Detected (NotDetected); Influenza B by NAA Not Detected (NotDetected); SARS-CoV-2 NAA Rapid Test Not Detected (NotDetected)
== END 2024-02-21 16:56 | disposition home or self-care (01) ==
LOC: MADERS 14:16
DX: A08.4 Viral intestinal infection, unspecified (principal)
CPT/HCPCS: 74177; 80053; 81001; 83605; 83690; 83735; 84703; 85025; 87040; 87086; 96361; 96374; 96375; J1200; J1885; J2765; J7050

== ENCOUNTER 2024-04-20 19:12 | Emergency (ER) | payer BC ==
[2024-04-20] MEDS ORDERED: Acetaminophen 500 MG TAB ONE (20:10)
[2024-04-20] MEDS ORDERED: Benzonatate 100 MG CAP ONE (20:10)
[2024-04-20 20:56] LABS: SARS-CoV-2 E Target Negative; SARS-CoV-2 N2 Target Negative; SARS-CoV-2 NAA Rapid Test Not Detected (NotDetected); SARS-CoV-2 RdRP gene Negative
== END 2024-04-20 20:58 | disposition home or self-care (01) ==
LOC: MADERS 19:12
DX: J06.9 Acute upper respiratory infection, unspecified (principal); K52.9 Noninfective gastroenteritis and colitis, unspecified; F17.210 Nicotine dependence, cigarettes, uncomplicated
CPT/HCPCS: 71046; 87081; 87430; 87804; 94760; U0002

== ENCOUNTER 2024-04-24 03:09 | Emergency (ER) | payer BC ==
[2024-04-24] MEDS ORDERED: Ketorolac Tromethamine 60 MG/2 ML VIAL ONE (03:43)
[2024-04-24] MEDS ORDERED: predniSONE 20 MG TAB ONE (03:43)
== END 2024-04-24 04:11 | disposition home or self-care (01) ==
LOC: MADERS 03:09
DX: J20.9 Acute bronchitis, unspecified (principal); F17.210 Nicotine dependence, cigarettes, uncomplicated
CPT/HCPCS: 96372; 99283; J1885; J7512

== ENCOUNTER 2024-05-02 09:40 | Emergency (ER) | payer BC ==
[2024-05-02] MEDS ORDERED: Dexamethasone 10 MG/ML VIAL ONE (10:48)
[2024-05-02] MEDS ORDERED: Benzonatate 100 MG CAP ONE (10:48)
[2024-05-03 13:50] LABS: SARS-CoV-2 N1 Positive; SARS-CoV-2 N2 Positive; SARS-CoV-2 RNAse P1 Positive
== END 2024-05-02 11:03 | disposition home or self-care (01) ==
LOC: MADERS 09:40
DX: U07.1 COVID-19 (principal); F17.210 Nicotine dependence, cigarettes, uncomplicated
CPT/HCPCS: 87635; 87804; 96372; 99283; J1100

== ENCOUNTER 2024-05-07 22:32 | Emergency (ER) | payer BC ==
[2024-05-07 23:10] LABS: Amphetamine Detected (NotDetected); Barbiturates Screen Not Detected (NotDetected); Benzodiazepine Screen Not Detected (NotDetected); Cocaine Metabolite Screen Not Detected (NotDetected); Methadone Not Detected (NotDetected); Methamphetamine Not Detected (NotDetected); Opiate Screen Not Detected (NotDetected); Oxycodone Screen Not Detected (NotDetected); Phencyclidine (PCP) Not Detected (NotDetected); THC/Cannabinoid Screen Not Detected (NotDetected); Tricyclic Screen Not Detected (NotDetected)
[2024-05-07 23:20] LABS: Eosinophils 2 % (0-10); Hematocrit 45.6 % (36.0-47.0); Hemoglobin 14.8 g/dL (12.0-16.0); Lymphocytes 33 % (21-51); MDiff Complete? YES; Mean Corpuscular HGB CONC 32.6 g/dL (32.0-36.0); Mean Corpuscular Hemoglobin 29.9 pg (27.0-31.0); Mean Corpuscular Volume 91.9 fl (78.0-98.0); Mean Platelet Volume 6.5 fL (7.4-10.4); Monocytes 3 % (0-10); Neutrophil 62 % (42-75); Platelet Count 265 10x3/uL (130-400); RBC Distribution Width 12.3 % (11.5-14.5); Red Blood Cell (RBC) Count 4.96 mill/uL (4.20-5.40); White Blood Cell (WBC) Count 14.2 10x3/uL (4.8-10.8)
[2024-05-07 23:26] LABS: Bilirubin Negative (Negative); Blood, Urine Negative (Negative); CAUTI Indications for Culture Dysuria,urgency,freq; Clarity Clear (Clear); Glucose, Urine (Dipstick) Negative (Negative); Ketone, Urine Negative (Negative); Leukocyte Negative (Negative); Nitrite Negative (Negative); Protein, Urine (Dipstick) Negative (Neg-Trace); RBC/HPF None Seen HPF (0-3); Urobilinogen 0.2 mg/dL (Less than 2); WBC/HPF None Seen HPF (0-3)
[2024-05-07 23:28] LABS: Urine Culture Reflex No No
[2024-05-07 23:42] LABS: ALT (SGPT) 73 U/L (8-55); AST (SGOT) 27 U/L (5-34); Albumin 3.5 g/dL (3.5-5.0); Alkaline Phosphatase 94 U/L (40-110); Anion Gap 17 mmol/L (10-20); BUN (Urea Nitrogen) 13 mg/dL (7.0-18.7); Bilirubin, Total 0.4 mg/dL (0.2-1.2); Calc. Creatinine Clearance 0 mL/min (70-130); Carbon Dioxide 20 mmol/L (22-29); Chloride 106 mmol/L (98-107); Estimated GFR 96; Globulin 2.8 g/dL (2.4-3.5); Glucose 148 mg/dL (70-105); Potassium 3.9 mmol/L (3.5-5.1); Protein, Total 6.3 g/dL (6.0-8.3); Sodium 139 mmol/L (136-145); Troponin I Less than 0.010 ng/mL (< 0.028)
== END 2024-05-08 00:25 | disposition home or self-care (01) ==
LOC: MADERS 22:32
DX: R07.89 Other chest pain (principal); F17.210 Nicotine dependence, cigarettes, uncomplicated
CPT/HCPCS: 71046; 80053; 80306; 81001; 84443; 84484; 85025; 85379; 93005

== ENCOUNTER 2024-05-22 10:29 | Emergency (ER) | payer BC | END 2024-05-22 10:59 | disposition home or self-care (01) | LOC: MADERS 10:29 | DX: M62.830 Muscle spasm of back (principal); F17.200 Nicotine dependence, unspecified, uncomplicated | CPT/HCPCS: 99283 ==

== ENCOUNTER 2024-06-05 19:41 | Emergency (ER) | payer BC ==
[2024-06-05] MEDS ORDERED: Acetaminophen 500 MG TAB ONE (20:08)
[2024-06-05] MEDS ORDERED: Ondansetron ODT 4 MG TAB ONE (20:08)
== END 2024-06-05 20:38 | disposition home or self-care (01) ==
LOC: MADERS 19:41
DX: B34.9 Viral infection, unspecified (principal); F17.210 Nicotine dependence, cigarettes, uncomplicated
CPT/HCPCS: 87081; 87430; 99283; Q0162

== ENCOUNTER 2024-06-21 21:51 | Emergency (ER) | payer BC ==
[2024-06-21 23:05] LABS: Bilirubin Negative (Negative); Blood, Urine Negative (Negative); CAUTI Indications for Culture Pelvic or flank pain; Clarity Clear (Clear); Glucose, Urine (Dipstick) Negative (Negative); Ketone, Urine Negative (Negative); Leukocyte Negative (Negative); Nitrite Negative (Negative); Protein, Urine (Dipstick) Negative (Neg-Trace); RBC/HPF None Seen HPF (0-3); Urobilinogen 0.2 mg/dL (Less than 2); WBC/HPF None Seen HPF (0-3)
[2024-06-21 23:06] LABS: Pregnancy Test - Urine (BHCG) Negative (Negative); Pregu Control Background? CLEAR/WHITE (CLR/WHITE); Pregu Control Bar Appear? YES (CONTROL BAR); Urine Culture Reflex No No
== END 2024-06-21 23:28 | disposition home or self-care (01) ==
LOC: MADERS 21:51
DX: R10.9 Unspecified abdominal pain (principal); R04.2 Hemoptysis; F17.210 Nicotine dependence, cigarettes, uncomplicated
CPT/HCPCS: 81001; 81025; 99283

== ENCOUNTER 2024-07-06 18:52 | Emergency (ER) | payer BC ==
[2024-07-06] MEDS ORDERED: Ketorolac Tromethamine 30 MG (1 mL) VIAL ONE (19:49)
[2024-07-06] MEDS ORDERED: metroNIDAZOLE 250 MG TAB ONE (20:16)
[2024-07-06] MEDS ORDERED: AMOXicillin 250 MG CAP ONE (20:16)
== END 2024-07-06 20:24 | disposition home or self-care (01) ==
LOC: MADERS 18:52
DX: K04.7 Periapical abscess without sinus (principal); F17.210 Nicotine dependence, cigarettes, uncomplicated
CPT/HCPCS: 96372; 99282; J1885

== ENCOUNTER 2024-08-24 08:15 | Emergency (ER) | payer BC | END 2024-08-24 08:34 | disposition home or self-care (01) | LOC: MADERS 08:15 | DX: H92.03 Otalgia, bilateral (principal); Z87.891 Personal history of nicotine dependence | CPT/HCPCS: 99282 ==

== ENCOUNTER 2025-04-30 08:31 | Emergency (ER) | payer BC, OTHER | END 2025-04-30 08:50 | disposition home or self-care (01) | LOC: MADERS 08:31 | DX: M54.50 Low back pain, unspecified (principal); Z87.891 Personal history of nicotine dependence | CPT/HCPCS: 99283 ==

== ENCOUNTER 2025-06-22 18:45 | Emergency (ER) | payer BC | END 2025-06-22 19:50 | disposition home or self-care (01) | LOC: MADERS 18:45 | DX: S90.31XA Contusion of right foot, initial encounter (principal); E66.9 Obesity, unspecified; F90.9 Attention-deficit hyperactivity disorder, unspecified type; Z87.891 Personal history of nicotine dependence; W20.8XXA Other cause of strike by thrown, projected or falling object, initial encounter | CPT/HCPCS: 99283 ==